=== PATIENT | male | born 1970 | race Two or more races ===

== ENCOUNTER 2017-12-18 07:58 | Emergency (ER) | payer OTHER ==
[~2017-12-18] VITALS: Ht 172.7 cm; Wt 93.9 kg
[~2017-12-18 07:58] MED LIST: AMLO5 PO; AZOR PO; Aspir 8181 MG PO; BP MED; CARV3.125; DIAZ2; DILT180 PO; HYDCHL25 PO; LISI10 PO; LISI20 PO; LISI5; LISI5 PO; LORA.5 PO; LORA1 PO; MAGN84; OLME20 PO; OMEP20ER PO; PARO20 PO; POTCHL20ER PO; STRESS B; VERA180ERB PO; ZINC15
[2017-12-18 08:47] LABS: BASOPHILS ABSOLUTE AUTO 0.02 K/mm3 (0.00-0.23); BASOPHILS PERCENT AUTO 0 % (0-2); EOSINOPHILS PERCENT AUTO 2 % (0-6); Hematocrit 42.9 % (37.0-53.0); Hemoglobin 15.4 g/dL (13.5-17.5); IMMATURE GRAN ABSOLUTE AUTO 0.03 K/mm3 (0.00-0.10); IMMATURE GRAN PERCENT AUTO 1 % (0-1); LYMPHOCYTES ABSOLUTE AUTO 2.64 K/mm3 (0.84-5.20); LYMPHOCYTES PERCENT AUTO 49 % (21-46); MONOCYTES ABSOLUTE AUTO 0.31 K/mm3 (0.16-1.47); MONOCYTES PERCENT AUTO 6 % (4-13); Mean Corpuscular HGB 30.9 pg (26.0-34.0); Mean Corpuscular HGB Conc 35.9 g/dL (31.5-36.5); Mean Corpuscular Volume 86 fL (80-100); Mean Platelet Volume 8.9 fL (9.1-12.4); NEUTROPHILS ABSOLUTE AUTO 2.31 K/mm3 (1.96-9.15); NEUTROPHILS PERCENT AUTO 43 % (41-73); Platelet Count 259 K/mm3 (150-400); RDW Standard Deviation 37.8 fL (35.1-46.3); Red Blood Cell Count 4.98 M/mm3 (4.30-5.90); White Blood Cell Count 5.41 K/mm3 (4.00-11.30)
[2017-12-18 09:06] LABS: Alanine Aminotransfer (ALT/SGP 41 U/L (12-78); Albumin, Blood 3.9 g/dL (3.4-5.0); Albumin/Globulin Ratio 1.1 (0.8-1.8); Alk Phos 73 U/L (50-136); Anion Gap 8 mmol/L (6-16); Aspartate Aminotrans (AST/SGOT 24 U/L (12-37); Bilirubin, Total 1.5 mg/dL (0.1-1.0); Blood Urea Nitrogen 14 mg/dL (8-24); Bun/Creatinine Ratio 15.7 (12.0-20.0); CO2, Blood 25 mmol/L (21-32); Calcium, Blood 8.8 mg/dL (8.5-10.1); Chloride, Blood 107 mmol/L (98-108); Creatinine, Blood 0.89 mg/dL (0.60-1.20); Globulin, Blood 3.7 g/dL (2.2-4.0); Glomerular Filtration Rate >60 (60-); Glucose, Blood 122 mg/dL (70-99); Potassium, Blood 3.7 mmol/L (3.5-5.5); Sodium, Blood 140 mmol/L (136-145); Total Protein, Blood 7.6 g/dL (6.4-8.2); Troponin I <0.015 ng/mL (0.000-0.040)
[2017-12-18] MEDS ORDERED: DOXA4 PO (10:07)
== END 2017-12-18 10:35 | disposition home or self-care (01) ==
LOC: ER 07:58
PROVIDERS: Emergency Medicine
DX: R42 Dizziness and giddiness (principal); F41.9 Anxiety disorder, unspecified; I25.2 Old myocardial infarction; I10 Essential (primary) hypertension; Z88.0 Allergy status to penicillin; Z88.8 Allergy status to other drugs, medicaments and biological substances; Z79.899 Other long term (current) drug therapy
CPT/HCPCS: 36415; 80053; 84484; 85025; 93005; 93010; 99284; J7120

== ENCOUNTER 2019-01-15 02:06 | Emergency (ER) | payer OTHER ==
[~2019-01-15] VITALS: Ht 170.2 cm; Wt 90.7 kg
[~2019-01-15 02:06] MED LIST changes: +DOXA4 PO
[2019-01-15] MEDS ORDERED: Bisoprolol Fumar5 MG PO (03:25)
[2019-01-15 03:36] LABS: BASOPHILS ABSOLUTE AUTO 0.03 K/mm3 (0.00-0.23); BASOPHILS PERCENT AUTO 1 % (0-2); EOSINOPHILS ABSOLUTE AUTO 0.54 K/mm3 (0.00-0.68); EOSINOPHILS PERCENT AUTO 9 % (0-6); Hematocrit 43.3 % (37.0-53.0); Hemoglobin 15.4 g/dL (13.5-17.5); IMMATURE GRAN ABSOLUTE AUTO 0.01 K/mm3 (0.00-0.10); IMMATURE GRAN PERCENT AUTO 0 % (0-1); LYMPHOCYTES PERCENT AUTO 46 % (21-46); MONOCYTES ABSOLUTE AUTO 0.47 K/mm3 (0.16-1.47); MONOCYTES PERCENT AUTO 8 % (4-13); Mean Corpuscular HGB 32.2 pg (26.0-34.0); Mean Corpuscular HGB Conc 35.6 g/dL (31.5-36.5); Mean Corpuscular Volume 91 fL (80-100); Mean Platelet Volume 8.9 fL (9.1-12.4); NEUTROPHILS ABSOLUTE AUTO 2.18 K/mm3 (1.96-9.15); NEUTROPHILS PERCENT AUTO 36 % (41-73); Platelet Count 251 K/mm3 (150-400); RDW Coefficient Variation 11.9 % (11.7-14.2); RDW Standard Deviation 39.7 fL (35.1-46.3); Red Blood Cell Count 4.78 M/mm3 (4.30-5.90); White Blood Cell Count 6.03 K/mm3 (4.00-11.30)
[2019-01-15 03:48] LABS: Source, Urine Clean Catch
[2019-01-15 03:50] LABS: Bilirubin, Urine Neg (Neg); Blood, Urine 2+ (Neg); Glucose Qualitative, Urine Neg (Neg); Ketones, Urine Neg (Neg); Leukocyte Esterase, Urine Neg (Neg); Nitrite, Urine Neg (Neg); Protein, Urine Neg (Neg); Urobilinogen, Urine NORM (Normal)
[2019-01-15 03:56] LABS: Alanine Aminotransfer (ALT/SGP 42 U/L (12-78); Albumin, Blood 3.9 g/dL (3.4-5.0); Albumin/Globulin Ratio 1.1 (0.8-1.8); Alk Phos 78 U/L (50-136); Anion Gap 7 mmol/L (6-16); Aspartate Aminotrans (AST/SGOT 19 U/L (12-37); Bilirubin, Total 0.8 mg/dL (0.1-1.0); Blood Urea Nitrogen 21 mg/dL (8-24); Bun/Creatinine Ratio 20.8 (12.0-20.0); CO2, Blood 25 mmol/L (21-32); Calcium, Blood 8.8 mg/dL (8.5-10.1); Chloride, Blood 109 mmol/L (98-108); Creatinine, Blood 1.01 mg/dL (0.60-1.20); Globulin, Blood 3.7 g/dL (2.2-4.0); Glomerular Filtration Rate >60 (60-); Glucose, Blood 112 mg/dL (70-99); Sodium, Blood 141 mmol/L (136-145); Total Protein, Blood 7.6 g/dL (6.4-8.2)
[2019-01-15 03:57] LABS: Appearance, Urine Clear (Clear); Color, Urine Yellow (P-Yellow)
[2019-01-15 03:59] LABS: Bacteria Mod /hpf; Red Blood Cells, Urine 0-2 /hpf (0-2); Squamous Epithelial Cells Not Seen /hpf (Few); White Blood Cells, Urine 0-2 /hpf (0-5)
[2019-01-15] MEDS ORDERED: Prilosec Otc20 MG PO (06:32)
[2019-01-15] MEDS ORDERED: SUCR1 PO (06:32)
== END 2019-01-15 07:00 | disposition home or self-care (01) ==
LOC: ER 02:06
PROVIDERS: Emergency Medicine
DX: K29.70 Gastritis, unspecified, without bleeding (principal); F41.9 Anxiety disorder, unspecified; I25.2 Old myocardial infarction; I10 Essential (primary) hypertension; Z88.0 Allergy status to penicillin; Z88.8 Allergy status to other drugs, medicaments and biological substances; Z79.899 Other long term (current) drug therapy
CPT/HCPCS: 36415; 80053; 81001; 83690; 85025; 87086; 99284

== ENCOUNTER → 2019-01-20 | Outpatient (CLI) | payer OTHER ==
[~2019-01-20] MED LIST changes: +Bisoprolol Fumar5 MG PO; +Bisoprolol-Hct1 EACH PO; +CALCIUM-MAGNES1 EAC3 PO; +HEMP OIL PO; +Prilosec Otc20 MG PO; +SUCR1 PO; +TURMERIC 500 M1 EACH PO
== END | disposition home or self-care (01) ==
LOC: LAB SHORT 08:30 → LAB 08:30
DX: R19.7 Diarrhea, unspecified (principal)
CPT/HCPCS: 87177; 87209

== ENCOUNTER → 2019-01-21 | Outpatient (CLI) | payer OTHER | END | disposition home or self-care (01) | LOC: LAB SHORT 08:40 → LAB 08:40 | DX: R19.7 Diarrhea, unspecified (principal) | CPT/HCPCS: 87015; 87045; 87046; 87205; 87899 ==

== ENCOUNTER 2019-02-14 05:53 | Day surgery (SDC) | payer OTHER ==
[~2019-02-14] VITALS: Ht 172.7 cm; Wt 93.8 kg
--- NOTE | 2019-02-14 06:30 | NUR ---
History, Chart, Medications and Allergies reviewed before start of procedure. Lungs clear T/O to Auscultation. Patient States Post-Procedure ride home has been arranged.
--- NOTE | 2019-02-14 07:29 | NUR ---
DR MÉNDEZ WAS MADE AWARE OF PT NOT TAKING BP MEDS FOR LAST WEEK, PT STATES HE LOST HIS BP MEDICATION AFTER RECENTLY GETTING A REFILL. ATENOLOL 12.5 MG PO GIVEN WITH SIP OF WATER PER PHARMACY RECOMMENDATION MOST EQUIVENENT TO BISOPROLOL WHICH PHARMACY DOES NOT HAVE.
--- NOTE | 2019-02-14 10:03 | NUR ---
RECIEVED PATIENT FROM PACU TO STEP. VSS DRESSING CLEAN DRY INTACT. ALERT ORIENTED TALKING WITH STAFF
--- NOTE | 2019-02-14 10:16 | NUR ---
FAMILY MEMBER BROUGHT TO BEDSIDE.
--- NOTE | 2019-02-14 14:06 | NUR ---
02/14/19 1406 Alia Paulson CHART AUDITS AND VERIFICATIONS.
== END 2019-02-14 23:21 | disposition home or self-care (01) ==
LOC: ORSCMMR 05:53 → ORD 07:30 → ORSCMMR 07:30
PROVIDERS: Surgery
PROC: 0FT44ZZ Resection of Gallbladder, Percutaneous Endoscopic Approach (ICD-10-PCS; principal; 2019-02-14 07:30)
PROC: BF031ZZ Plain Radiography of Gallbladder and Bile Ducts using Low Osmolar Contrast (ICD-10-PCS; principal; 2019-02-14 07:30)
DX: K80.20 Calculus of gallbladder without cholecystitis without obstruction (principal); I10 Essential (primary) hypertension; Z79.899 Other long term (current) drug therapy
CPT/HCPCS: 74300; 87070; 87081; 88304; A9270-GY; C1729; J0690; J1100; J2250; J2405; J2704; J2765; J3010; J7120

== ENCOUNTER → 2019-02-19 | Outpatient (CLI) | payer OTHER | LOC: LAB SHORT 15:11 → LAB EV 15:11 | DX: T81.40XA Infection following a procedure, unspecified, initial encounter (principal) | CPT/HCPCS: 87070; 87205 ==

== ENCOUNTER 2019-07-04 10:59 | Day surgery (SDC) | payer OTHER ==
[~2019-07-04] VITALS: Ht 170.2 cm; Wt 90.2 kg
--- NOTE | 2019-07-04 13:01 | NUR ---
07/04/19 1301 Yanna Sanchez PT UPDATED ON DELAY. PT RESTING COMFORTABLY IN BED WITH CELL PHONE AND CALL LIGHT WITHIN REACH. PT VERBALIZES UNDERSTANDING OF DELAY AND DENIES NEEDS. PROCEDURE & DISCHARGE EDUCATION PROVIDED, QUESTIONS ANSWERED.
== END 2019-07-04 15:35 | disposition home or self-care (01) ==
LOC: ORSCSDS 10:59
DX: R10.9 Unspecified abdominal pain (principal); R19.4 Change in bowel habit; R13.10 Dysphagia, unspecified; Z53.9 Procedure and treatment not carried out, unspecified reason
CPT/HCPCS: J2704; J7120

== ENCOUNTER 2019-08-29 07:57 | Day surgery (SDC) | payer OTHER ==
[~2019-08-29] VITALS: Ht 170.2 cm; Wt 91.3 kg
--- NOTE | 2019-08-29 08:46 | NUR ---
08/29/19 0846 Ashley Mosqueda 1 IV MISS IN RH BY YIN VALVE 1 GOOD IV IN RAC BY YIN PT TOW
== END 2019-08-29 10:45 | disposition home or self-care (01) ==
LOC: ORSCSDS 07:57
PROVIDERS: Internal Medicine Gastroenterology
PROC: 0DBE8ZX Excision of Large Intestine, Via Natural or Artificial Opening Endoscopic, Diagnostic (ICD-10-PCS; principal; 2019-08-29 09:30)
PROC: 0DB58ZX Excision of Esophagus, Via Natural or Artificial Opening Endoscopic, Diagnostic (ICD-10-PCS; principal; 2019-08-29 09:30)
PROC: 0DB98ZX Excision of Duodenum, Via Natural or Artificial Opening Endoscopic, Diagnostic (ICD-10-PCS; principal; 2019-08-29 09:30)
PROC: 0D758ZZ Dilation of Esophagus, Via Natural or Artificial Opening Endoscopic (ICD-10-PCS; principal; 2019-08-29 09:30)
PROC: 0DB68ZX Excision of Stomach, Via Natural or Artificial Opening Endoscopic, Diagnostic (ICD-10-PCS; principal; 2019-08-29 09:30)
DX: R13.10 Dysphagia, unspecified (principal); K22.2 Esophageal obstruction; K21.9 Gastro-esophageal reflux disease without esophagitis; K29.50 Unspecified chronic gastritis without bleeding; B96.81 Helicobacter pylori [H. pylori] as the cause of diseases classified elsewhere; K64.8 Other hemorrhoids; R19.4 Change in bowel habit; R10.13 Epigastric pain; R10.31 Right lower quadrant pain; R10.32 Left lower quadrant pain; I10 Essential (primary) hypertension; Z79.899 Other long term (current) drug therapy
CPT/HCPCS: 88305; 88342; J2704; J7120

== ENCOUNTER 2020-12-24 09:00 | Day surgery (SDC) | payer OTHER ==
[~2020-12-24] VITALS: Ht 170.2 cm; Wt 94.7 kg
[~2020-12-24 09:00] MED LIST changes: +ALPR.5; +Bisoprolol Fumar5 MG; +Flonase 0.05% N16 GM; +OMEP20ER
[2020-12-24] MEDS ORDERED: CLON.1 PO (09:19)
[2020-12-24] MEDS ORDERED: BUSPIRONE HCL10 M2 PO (09:19)
[2020-12-24] MEDS ORDERED: LORA.5 PO (09:24)
== END 2020-12-24 10:56 | disposition home or self-care (01) ==
LOC: ORSCSDS 09:00
PROVIDERS: Internal Medicine Gastroenterology
PROC: 0D758ZZ Dilation of Esophagus, Via Natural or Artificial Opening Endoscopic (ICD-10-PCS; principal; 2020-12-24 10:15)
PROC: 0DB58ZX Excision of Esophagus, Via Natural or Artificial Opening Endoscopic, Diagnostic (ICD-10-PCS; principal; 2020-12-24 10:15)
PROC: 0DB68ZX Excision of Stomach, Via Natural or Artificial Opening Endoscopic, Diagnostic (ICD-10-PCS; principal; 2020-12-24 10:15)
DX: K20.0 Eosinophilic esophagitis (principal); R13.10 Dysphagia, unspecified; K31.89 Other diseases of stomach and duodenum; K76.0 Fatty (change of) liver, not elsewhere classified; I10 Essential (primary) hypertension; Z79.899 Other long term (current) drug therapy
CPT/HCPCS: 88305; 88341; 88342; J2704; J7120

== ENCOUNTER 2023-06-01 10:30 | Day surgery (SDC) | payer OTHER ==
[~2023-06-01] VITALS: Ht 170.2 cm; Wt 92.3 kg
[~2023-06-01 10:30] MED LIST changes: +BUSPIRONE HCL10 M2 PO; +CLON.1 PO
[2023-06-01 12:50] VITALS: BP 139/82
== END 2023-06-01 12:59 | disposition home or self-care (01) ==
LOC: ORSCSDS 10:30
PROVIDERS: Internal Medicine Gastroenterology
PROC: 0DB78ZX Excision of Stomach, Pylorus, Via Natural or Artificial Opening Endoscopic, Diagnostic (ICD-10-PCS; principal; 2023-06-01 12:15)
PROC: 0DB58ZX Excision of Esophagus, Via Natural or Artificial Opening Endoscopic, Diagnostic (ICD-10-PCS; principal; 2023-06-01 12:15)
PROC: 0D758ZZ Dilation of Esophagus, Via Natural or Artificial Opening Endoscopic (ICD-10-PCS; principal; 2023-06-01 12:15)
DX: K20.0 Eosinophilic esophagitis (principal); R13.12 Dysphagia, oropharyngeal phase; K31.A0 Gastric intestinal metaplasia, unspecified; K29.70 Gastritis, unspecified, without bleeding; I10 Essential (primary) hypertension; G47.33 Obstructive sleep apnea (adult) (pediatric); I25.10 Atherosclerotic heart disease of native coronary artery without angina pectoris; F41.9 Anxiety disorder, unspecified; Z79.899 Other long term (current) drug therapy
CPT/HCPCS: 88305; 88341; 88342; J2704; J7120

== ENCOUNTER 2024-03-09 07:56 | Day surgery (SDC) | payer OTHER ==
[~2024-03-09] VITALS: Ht 167.6 cm; Wt 90.3 kg
[2024-03-09] MEDS ORDERED: propofoL 50 ML IV ONE (08:12)
[2024-03-09] MEDS ORDERED: Lactated Ringer's 1,000 ML IV ONE ×2 (08:13→09:05)
[2024-03-09 10:07] VITALS: BP 133/95
== END 2024-03-09 10:12 | disposition home or self-care (01) ==
LOC: ORSCSDS 07:56
PROVIDERS: Internal Medicine Gastroenterology
PROC: 0DBL8ZX Excision of Transverse Colon, Via Natural or Artificial Opening Endoscopic, Diagnostic (ICD-10-PCS; principal; 2024-03-09 09:30)
DX: K62.5 Hemorrhage of anus and rectum (principal); D12.3 Benign neoplasm of transverse colon; K76.0 Fatty (change of) liver, not elsewhere classified
CPT/HCPCS: 88305; J2704; J7120